=== PATIENT | male | born 1995 | race Caucasian/White ===

== ENCOUNTER 2023-10-02 07:00 | Outpatient (CLI) | payer OTHER ==
--- NOTE | 2023-10-02 22:34 | XRAY Report ---
PROCEDURE: Finger(s) LT INDICATIONS: LEFT RING FINGER SPRAIN TECHNIQUE: PA hand, 2 views of the ring finger acquired. COMPARISON: None. FINDINGS: Bones: No acute fractures or dislocations. No suspicious bony lesions. Soft tissues: No suspicious soft tissue calcifications or masses. IMPRESSION: No acute osseous abnormality. If there is clinical concern or persistent symptoms, additional imaging such as repeat radiographs or advanced imaging (e.g. CT, MRI) may be helpful for further evaluation. Reviewed by: Eliot Alexis MD on 10/02/2023 10:33 PM PST Approved by: Eliot Alexis MD on 10/02/2023 10:33 PM PST Station ID: [id number]
== END 2023-10-02 23:59 | disposition home or self-care (01) ==
LOC: DI.S 07:00
PROVIDERS: ATTEND Registered Nurse
DX: S63.615A Unspecified sprain of left ring finger, initial encounter (principal)

== ENCOUNTER 2023-10-13 07:28 | Outpatient (CLI) | payer OTHER ==
--- NOTE | 2023-10-13 13:08 | XRAY Report ---
PROCEDURE: Finger(s) LT INDICATIONS: LEFT 4TH FINGER PAIN TECHNIQUE: AP hand, 2 views of the left fourth finger(s) acquired. COMPARISON: None. FINDINGS: Bones: No fractures or dislocations. No suspicious bony lesions. Soft tissues: No suspicious soft tissue calcifications or masses. IMPRESSION: No acute bony abnormality. Reviewed by: Candi Edmonds MD, PhD on 10/13/2023 1:07 PM [facility] Approved by: Candi Edmonds MD, PhD on 10/13/2023 1:07 PM [facility] Station ID: [id number]
== END 2023-10-13 23:59 | disposition home or self-care (01) ==
LOC: DI.WOS 07:28
PROVIDERS: ATTEND Physician Assistant Surgical
DX: M79.645 Pain in left finger(s) (principal)

== ENCOUNTER 2024-02-09 08:00 | Outpatient (CLI) | payer OTHER ==
--- NOTE | 2024-02-09 17:04 | XRAY Report ---
PROCEDURE: Cervical Spine 2-3V INDICATIONS: NECK PAIN TECHNIQUE: 3 view(s) of the cervical spine were acquired. COMPARISON: No relevant comparisons at time of dictation. FINDINGS: Bones: No fractures or dislocations to the C7 level. The lateral masses of C1 appear intact on the odontoid view. No suspicious bony lesions. Soft tissues: No prevertebral soft tissue swelling. IMPRESSION: No displaced fracture or traumatic subluxation. If there remains a high clinical concern, consider cr oss-sectional imaging. No significant degenerative change. Reviewed by: Travis Murguia MD on 02/09/2024 5:02 PM PDT Approved by: Travis Murguia MD on 02/09/2024 5:02 PM PDT Station ID: [id number]
== END 2024-02-09 23:59 | disposition home or self-care (01) ==
LOC: DI.S 08:00
PROVIDERS: ATTEND Registered Nurse
DX: M54.2 Cervicalgia (principal)